=== PATIENT | female | born 1990 | race Caucasian/White ===

== ENCOUNTER 2021-11-06 20:44 | Emergency (ER) | payer BC ==
[2021-11-06] MEDS ORDERED: Sodium Chloride 0.9% 10 ML Syringe FLUSH PRN (21:24)
[2021-11-06] MEDS ORDERED: Sodium Chloride 0.9% 1,000 ML IV ONE (21:32)
[2021-11-06 21:50] LABS: CHLORIDE,CL 101 mmol/L (98-107); SODIUM,NA 138 mmol/L (136-145)
[2021-11-06 21:51] LABS: ANION GAP 14.4 mmol/L (5-15)
[2021-11-06] MEDS ORDERED: Ondansetron 8 MG in Sodium Chloride 0.9% 100 ML IV ONE (22:37)
[2021-11-06] MEDS ORDERED: cefTRIAXone 2 GM Vial IVPUSH ONE (22:59)
[2021-11-06] MEDS ORDERED: cefTRIAXone 2 GM Vial ONE (23:02)
== END 2021-11-06 23:54 | disposition short-term general hospital (02) ==
LOC: VM.ED 20:44
DX: D70.9 Neutropenia, unspecified (principal); R50.81 Fever presenting with conditions classified elsewhere; Z92.21 Personal history of antineoplastic chemotherapy
CPT/HCPCS: 36415; 71045; 80053; 81003; 83605; 85025; 86140; 87040; 96374; 96375; 99284; 99284-25; J0696; J2405; J7030